=== PATIENT | male | born 1970 | race American Indian/Alaskan Native ===

== ENCOUNTER 2016-11-18 00:16 | Emergency (ER) | payer SELFPAY ==
[2016-11-18] MEDS ORDERED: NACL 0.9% 500 ML IR ONE ×2 (01:22→01:24)
[2016-11-18] MEDS ORDERED: NACL 0.9% IR ONE ×2 (02:27→02:30)
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
[2016-11-18] MEDS ORDERED: THERMAZENE 50 GRAM TP ONE (02:37)
[2016-11-18] MEDS ORDERED: MOTRIN PO ONE (02:37)
[2016-11-18 03:37] VITALS: BP 116/75
== END 2016-11-18 03:42 | disposition home or self-care (01) ==
LOC: ED 00:16
DX: T23.292A Burn of second degree of multiple sites of left wrist and hand, initial encounter (principal); K21.9 Gastro-esophageal reflux disease without esophagitis; F12.10 Cannabis abuse, uncomplicated; X08.8XXA Exposure to other specified smoke, fire and flames, initial encounter; Y93.9 Activity, unspecified; Y92.9 Unspecified place or not applicable; Y99.9 Unspecified external cause status
CPT/HCPCS: 99282